=== PATIENT | female | born 1965 | race Caucasian/White ===

== ENCOUNTER → 2017-03-29 | Day surgery (SDC) | payer OTHER ==
[~2017-03-29] MED LIST: ACETAMINOPHEN 1000 MG/100 ML 100 ML IV ONE; ACETAMINOPHEN/HYDROcodone 325 MG/5 MG TAB ONE; ALBU8I INH; BACITRACIN IM FOR SOLN 50,000 UNIT VIAL ONE; BUPIVACAINE/EPINEPHRINE 0.25% 50 ML VIAL ONE; CYCL-36 PO; GENTAMICIN SULFATE 80 MG/2 ML VIAL ONE; HYDR15TA PO; KETOROLAC TROMETHAMINE 30 MG/ML (IVP) VIAL IV PUSH ONE; LACTATED RINGER'S 1000 ML INJ 1,000 ML ONE; LIDOCAINE HCL 1.5% PF SOLN 20 ML AMP INFIL ONE; LORA-474 PO; MIDAZOLAM HCL 2 MG/2 ML VIAL ONE; ONDANSETRON HCL 4 MG/2 ML VIAL IV PUSH ONE; OXYC-360 PO; PROC1TAB8 PO; PROPOFOL 200 MG/20 ML AMP IV ONE; PROZ20CA11 PO; RANI150UDC PO; SODIUM CHLORIDE 0.9% 20 ML VIAL ONE; SYMB160A INH; TAMS0.4C67 PO; TRAM50 PO; [UNRECOGNIZED DRUG - OTHER] PO; ceFAZolin INJ 1,000 MG VIAL ONE
--- NOTE | 2017-03-29 10:02 | TN ---
cc: NIKOLAS HARRIS M.D. DATE OF SURGERY: 03/29/2017 PREOPERATIVE DIAGNOSIS Deflation left breast implant. POSTOPERATIVE DIAGNOSIS Deflation left breast implant. PROCEDURE Removal of bilateral breast implants. SURGEON Nikolas Harris MD, FACS. ANESTHESIA LMA general. ESTIMATED BLOOD LOSS Minimal. COMPLICATIONS None. DETAILS OF PROCEDURE After proper consent was obtained, the patient was taken to the operating room where after achieving local anesthesia the area was properly prepped and draped utilizing Betadine solution and sterile draping applied. I also utilized approximately 20 cc of 1% lidocaine with epinephrine into the incision line. Through the an inframammary incision of 3.5 cm the capsule was encountered. The implant was removed. The right was intact. The left was completely deflated. No evidence of pathology found. The wounds were closed in multiple 2-0 Monocryl suture layers. Steri-Strips, Mastisol and a snug brassiere was applied after absorbent dressings. The patient tolerated the procedure well. Nikolas Harris MD [facility]ASH /9:33 AM /9:42 AM MTDD
== END | disposition home or self-care (01) ==
LOC: ESDC 08:28
PROVIDERS: ATTEND Plastic Surgery
DX: Z41.1 Encounter for cosmetic surgery (principal)
CPT/HCPCS: 00400; 19328; J0131; J0690; J1580; J1885; J2250; J2405; J3010; J7120